=== PATIENT | male | born 1950 | race Caucasian/White ===

== ENCOUNTER 2020-09-05 08:30 | Outpatient (CLI) | payer MEDICARE, OTHER ==
--- NOTE | 2020-09-05 14:29 | NM ---
Exam: Nuclear medicine brain imaging for Parkinson's Comparison none TECHNIQUE: Patient administered 4.8 mCi of I-123 I also pain intravenously. FINDINGS: There is slight asymmetric decreased uptake involving the right and left putamen. There is preserved activity in the right and left caudate. Findings are consistent with Parkinson's disease or atypical parkinsonian syndromes IMPRESSION: Scintigraphic evidence suggesting Parkinson's disease or atypical parkinsonian syndromes
== END 2020-09-05 08:31 | disposition home or self-care (01) ==
LOC: NM 08:30
PROVIDERS: ATTEND Psychiatry & Neurology Neurology
DX: G20 Parkinson's disease (principal)
CPT/HCPCS: 78803; A9584

== ENCOUNTER 2021-09-04 11:03 | Inpatient (IN) | payer MEDICARE, OTHER ==
[2021-09-04 14:42] VITALS: BMI 28.5
[2021-09-04] MEDS ORDERED: hydrALAZINE 20 MG/ML VIAL SLOW IVP PRN (16:08)
[2021-09-04] MEDS ORDERED: Ondansetron ODT 4 MG TAB PO PRN (16:14)
[2021-09-04] MEDS ORDERED: Acetaminophen 325 MG TAB PO PRN (16:14)
[2021-09-04] MEDS ORDERED: Clopidogrel Bisulfate 75 MG TAB PO SCH (16:15)
[2021-09-04] MEDS: rOPINIRole HCl 2 MG TAB PO SCH (20:41)
[2021-09-04] MEDS: Carbidopa/Levodopa 25-100 mg Tablet PO SCH (20:41)
[2021-09-04] MEDS: Trihexyphenidyl 2 MG TAB PO SCH (20:41)
[2021-09-04] MEDS ORDERED: Famotidine 20 MG TAB PO SCH (21:00)
[2021-09-04] MEDS ORDERED: Atorvastatin Calcium 40 MG TAB PO SCH (21:00)
[2021-09-05 07:29] LABS: #Eosinphils 0.1 thou/uL (0.0-0.7); #Lymphocytes 1.1 thou/uL (1.20-3.40); #Monocytes 0.5 thou/uL (0.11-0.59); #Neutrophils 3.7 thou/uL (1.40-6.50); %Basophils 0.6 % (0.0-1.0); %Eosinophils 2.1 % (0.0-10.0); %Lymphocytes 20.6 % (21.0-51.0); %Monocytes 8.8 % (0.0-10.0); %Neutrophils 67.9 % (42.0-75.0); Hemoglobin 18.1 g/dL (14.0-18.0); Mean Corpuscular Hemoglobin 31.3 pg (27.0-31.0); Mean Platelet Volume 7.5 fL (7.4-10.4); Platelet Count 149 thou/uL (130-400); RBC Distribution Width 11.8 % (11.5-14.5); Red Blood Cell (RBC) Count 5.78 mill/uL (4.70-6.10); White Blood Cell (WBC) Count 5.4 thou/uL (4.8-10.8)
[2021-09-05 07:45] LABS: Anion Gap 17 mmol/L (10-20); BUN (Urea Nitrogen) 17 mg/dL (8.4-25.7); Calc. Creatinine Clearance 88 mL/min (70-130); Calcium 8.8 mg/dL (7.8-10.44); Carbon Dioxide 17 mmol/L (23-31); Cardiac Risk 3.3 (Less than 4.5); Chloride 106 mmol/L (98-107); Cholesterol 159 mg/dl (< 200 Desired); Glucose 94 mg/dL (80-115); HDL Cholesterol 48 mg/dL (>60 Neg Risk); LDL Cholesterol, Calculated 91 mg/dL; Magnesium 1.9 mg/dL (1.6-2.6); Potassium 4.1 mmol/L (3.5-5.1); Sodium 136 mmol/L (136-145); Triglycerides 100 mg/dL (Less than 150)
[2021-09-05 08:17] LABS: Thyroid Stimulating Hormone 0.959 uIU/mL (0.35-4.94)
[2021-09-05] MEDS: Carbidopa/Levodopa 25-100 mg Tablet PO SCH ×3 (08:36→19:56)
[2021-09-05] MEDS: Aspirin Chewable 81 MG TAB PO SCH (08:36)
[2021-09-05] MEDS: Trihexyphenidyl 2 MG TAB PO SCH ×2 (08:36→19:58)
[2021-09-05] MEDS: Clopidogrel Bisulfate 75 MG TAB PO SCH (08:36)
[2021-09-05] MEDS: rOPINIRole HCl 2 MG TAB PO SCH (19:57)
[2021-09-06] MEDS: Carbidopa/Levodopa 25-100 mg Tablet PO SCH (08:30)
[2021-09-06] MEDS: Aspirin Chewable 81 MG TAB PO SCH (08:30)
[2021-09-06] MEDS: Clopidogrel Bisulfate 75 MG TAB PO SCH (08:30)
[2021-09-06] MEDS: Trihexyphenidyl 2 MG TAB PO SCH (08:31)
[2021-09-06 12:00] VITALS: BP 123/67; TEMP 97.5
[2021-09-06] MEDS ORDERED: Atorvastatin Calcium 20 MG TAB PO SCH (21:00)
== END 2021-09-06 14:30 | disposition home or self-care (01) | DRG 69 ==
LOC: NEURO 14:22 → OBSVTOIN 16:13
PROVIDERS: ADMIT Internal Medicine; ATTEND Internal Medicine
DX: G45.9 Transient cerebral ischemic attack, unspecified (principal); Z20.822 Contact with and (suspected) exposure to COVID-19; I65.22 Occlusion and stenosis of left carotid artery; G20 Parkinson's disease; N18.2 Chronic kidney disease, stage 2 (mild); E78.5 Hyperlipidemia, unspecified; R29.810 Facial weakness; R00.1 Bradycardia, unspecified; Z88.8 Allergy status to other drugs, medicaments and biological substances; Z79.899 Other long term (current) drug therapy; Z79.82 Long term (current) use of aspirin; Z79.02 Long term (current) use of antithrombotics/antiplatelets; Z90.49 Acquired absence of other specified parts of digestive tract
CPT/HCPCS: 36415; 70551; 80048; 80061; 82607; 82746; 83735; 84443; 85025; 93005; 93010; 93306